=== PATIENT | male | born 1950 | race African-American/Black ===

== ENCOUNTER 2018-06-25 11:14 | Inpatient (IN) | payer MEDICARE ==
[~2018-06-25] VITALS: Ht 175.3 cm; Wt 131.5 kg
[2018-06-25] VITALS (16 sets, daily range): BP systolic 119–146; BP diastolic 64–105
[2018-06-25] MEDS ORDERED: LEVETIRACETAM 1000MG/100ML 100 ML IV ONE (11:30)
[2018-06-25] MEDS ORDERED: DEXAMETHASONE 10 MG/ML VIAL IV ONE (11:30)
[2018-06-25 11:31] LABS: BASOPHILS % 0.6 % (0.0-2.0); EOSINOPHILS % 9.8 % (0.0-5.0); LYMPHOCYTES % 28.3 % (20.0-50.0); MEAN CORPUSCULAR HEMOGLOBIN 26.5 pg (28.0-32.0); MEAN CORPUSCULAR VOLUME 83.3 fL (80.0-94.0); MEAN PLATELET VOLUME 8.3 fl (7.4-10.4); MONOCYTES % 9.1 % (2.0-8.0); NEUTROPHILS % 52.2 % (40.0-76.0); PLATELET 213 x1000/uL (130-400); RED BLOOD CELL COUNT 5.28 mill/uL (4.7-6.1); RED CELL DISTRIBUTION WIDTH 16.1 % (11.6-14.6)
[2018-06-25 11:35] LABS: CHLORIDE 112 mEq/L (98-107)
[2018-06-25 11:37] LABS: PROTHROMBIN TIME 10.4 sec (9.6-11.0)
[2018-06-25 11:39] LABS: ETHANOL BLOOD < 10 mg/dL
[2018-06-25 11:41] LABS: LDL CHOLESTEROL 101 mg/dL (5-100)
[2018-06-25] MEDS: NICARDIPINE 40MG/200ML PREMIX 200 ML IV PRN ×2 (11:50→16:42)
[2018-06-25] MEDS ORDERED: NICARDIPINE 100 MG in SODIUM CHLORIDE 0.9% 60 ML IV PRN (12:00)
[2018-06-25] MEDS ORDERED: MORPHINE SULFATE 4 MG/ML CPJ (NOT FOR IM USE) IV PRN (12:00)
[2018-06-25] MEDS ORDERED: IPRATROPIUM/ALBUTEROL 0.5-3(2.5)MG/3ML NEB INH PRN (12:30)
[2018-06-25] MEDS ORDERED: ACETAMINOPHEN 650MG SUPP PR PRN (12:30)
[2018-06-25 13:40] LABS: CLARITY URINE CLEAR (CLEAR); COLOR URINE YELLOW (YELLOW); KETONES URINE NEGATIVE (NEGATIVE); LEUKOCYTE ESTERASE URINE NEGATIVE (NEGATIVE); NITRITE URINE NEGATIVE (NEGATIVE); OCCULT BLOOD URINE TRACE (NEGATIVE); PH URINE 7.5 (4.5-8.0); PROTEIN URINE 1+ (NEGATIVE); SPECIFIC GRAVITY URINE 1.012 (1.005-1.030); UROBILINOGEN URINE 0.2 E.U./dL (0.2-1.0)
[2018-06-25 13:57] LABS: *AMPHETAMINES SCREEN URINE NEGATIVE (NEGATIVE); *BARBITURATES SCREEN URINE NEGATIVE (NEGATIVE); *BENZODIAZEPINES SCREEN URINE NEGATIVE (NEGATIVE); *COCAINE SCREEN URINE NEGATIVE (NEGATIVE); METHADONE URINE SCREEN NEGATIVE (NEGATIVE); OPIATES URINE SCREEN NEGATIVE (NEGATIVE)
[2018-06-25 13:58] LABS: CANNABINOID URINE SCREEN NEGATIVE (NEGATIVE); PHENCYCLIDINE URINE SCREEN NEGATIVE (NEGATIVE)
[2018-06-25] MEDS: DEXT 5%/LACTATED RINGERS 1,000 ML IV SCH ×2 (16:58→22:36)
[2018-06-25] MEDS ORDERED: LEVETIRACETAM 500MG PREMIX 100 ML IV SCH (21:00)
[2018-06-25] MEDS: DEXAMETHASONE 4MG/ML 1ML VIAL IV SCH (22:34)
[2018-06-25] MEDS: NICARDIPINE 100 MG in SODIUM CHLORIDE 0.9% 60 ML IV PRN (22:35)
[2018-06-26] VITALS (95 sets, daily range): BP systolic 109–176; BP diastolic 53–121
[2018-06-26] MEDS: DEXAMETHASONE 4MG/ML 1ML VIAL IV SCH ×4 (00:03→17:56)
[2018-06-26] MEDS: LEVETIRACETAM 500 MG in SODIUM CHLORIDE 0.9% 100 ML IV SCH ×2 (08:32→20:57)
[2018-06-26] MEDS: PANTOPRAZOLE SODIUM 40 MG/VIAL IV SCH (08:33)
[2018-06-26] MEDS: NICARDIPINE 100 MG in SODIUM CHLORIDE 0.9% 60 ML IV PRN ×2 (09:23→18:07)
[2018-06-26] MEDS: DEXT 5%/LACTATED RINGERS 1,000 ML IV SCH (14:47)
[2018-06-26] MEDS ORDERED: CLONIDINE 0.1MG TABLET PO PRN (15:15)
[2018-06-26] MEDS: LISINOPRIL 20MG TABLET PO SCH (20:57)
[2018-06-26] MEDS: ATORVASTATIN CALCIUM 10MG TABLET PO SCH (20:57)
[2018-06-26] MEDS: METOPROLOL TARTRATE 25MG TABLET PO SCH (20:58)
[2018-06-27] VITALS (77 sets, daily range): BP systolic 113–176; BP diastolic 54–117
[2018-06-27] MEDS: DEXAMETHASONE 4MG/ML 1ML VIAL IV SCH ×4 (00:29→18:00)
[2018-06-27] MEDS: NICARDIPINE 100 MG in SODIUM CHLORIDE 0.9% 60 ML IV PRN ×4 (00:51→20:33)
[2018-06-27] MEDS: METOPROLOL TARTRATE 25MG TABLET PO SCH ×2 (08:55→20:33)
[2018-06-27] MEDS: LEVETIRACETAM 500 MG in SODIUM CHLORIDE 0.9% 100 ML IV SCH ×2 (08:55→20:33)
[2018-06-27] MEDS: PANTOPRAZOLE SODIUM 40 MG/VIAL IV SCH (08:55)
[2018-06-27] MEDS: AMLODIPINE 10MG TABLET PO SCH (08:56)
[2018-06-27] MEDS: LISINOPRIL 20MG TABLET PO SCH ×2 (08:56→20:33)
[2018-06-27] MEDS: DEXT 5%/LACTATED RINGERS 1,000 ML IV SCH (09:07)
[2018-06-27] MEDS: HYDRALAZINE HCL 50MG TABLET PO SCH ×2 (13:59→21:59)
[2018-06-27] MEDS: ATORVASTATIN CALCIUM 10MG TABLET PO SCH (20:33)
[2018-06-28] VITALS (64 sets, daily range): BP systolic 100–160; BP diastolic 47–115
[2018-06-28] MEDS: DEXAMETHASONE 4MG/ML 1ML VIAL IV SCH ×5 (00:29→23:30)
[2018-06-28] MEDS: DEXT 5%/LACTATED RINGERS 1,000 ML IV SCH ×2 (02:55→17:43)
[2018-06-28] MEDS: NICARDIPINE 100 MG in SODIUM CHLORIDE 0.9% 60 ML IV PRN (03:57)
[2018-06-28] MEDS: HYDRALAZINE HCL 50MG TABLET PO SCH ×3 (06:30→23:30)
[2018-06-28] MEDS: PANTOPRAZOLE SODIUM 40 MG/VIAL IV SCH (08:42)
[2018-06-28] MEDS: METOPROLOL TARTRATE 25MG TABLET PO SCH ×2 (08:42→21:26)
[2018-06-28] MEDS: LISINOPRIL 20MG TABLET PO SCH ×2 (08:43→21:26)
[2018-06-28] MEDS: AMLODIPINE 10MG TABLET PO SCH (08:43)
[2018-06-28] MEDS: LEVETIRACETAM 500 MG in SODIUM CHLORIDE 0.9% 100 ML IV SCH (08:45)
[2018-06-28] MEDS: ATORVASTATIN CALCIUM 10MG TABLET PO SCH (21:25)
[2018-06-29] VITALS: BP 126/62
[2018-06-29] MEDS: LEVETIRACETAM 500 MG in SODIUM CHLORIDE 0.9% 100 ML IV SCH ×2 (00:27→08:55)
[2018-06-29 04:00] VITALS: BP 122/71
[2018-06-29] MEDS: HYDRALAZINE HCL 50MG TABLET PO SCH ×2 (05:54→13:54)
[2018-06-29] MEDS: DEXAMETHASONE 4MG/ML 1ML VIAL IV SCH (05:54)
[2018-06-29 08:00] VITALS: BP 129/72
[2018-06-29] MEDS: METOPROLOL TARTRATE 25MG TABLET PO SCH (08:55)
[2018-06-29] MEDS: PANTOPRAZOLE SODIUM 40 MG/VIAL IV SCH (08:55)
[2018-06-29] MEDS: AMLODIPINE 10MG TABLET PO SCH (08:56)
[2018-06-29] MEDS: LISINOPRIL 20MG TABLET PO SCH (08:58)
[2018-06-29 11:20] VITALS: BP 129/72
[2018-06-29] MEDS ORDERED: IOHEXOL-350 100 ML BOTTLE ONE (15:52)
[2018-06-29 16:00] VITALS: BP 107/65
[2018-06-30] MEDS ORDERED: DEXAMETHASONE 4MG TABLET PO SCH (09:00)
== END 2018-06-29 17:05 | DRG 65 ==
LOC: ER 11:14 → MICUSO 11:53 → EDBEDREQ 11:54 → EDBEDREQSVC 11:54 → ENRESERV 18:58 → SUPCPDRO 19:07 → 6EST 06-28 17:15
PROVIDERS: ADMIT Internal Medicine; ATTEND Internal Medicine
DX: I61.0 Nontraumatic intracerebral hemorrhage in hemisphere, subcortical (principal); G81.91 Hemiplegia, unspecified affecting right dominant side; I10 Essential (primary) hypertension; E78.00 Pure hypercholesterolemia, unspecified; R47.1 Dysarthria and anarthria; E78.5 Hyperlipidemia, unspecified; R13.10 Dysphagia, unspecified; Z79.899 Other long term (current) drug therapy
CPT/HCPCS: 36415; 70496; 71045; 80305; 80320; 82465; 83721; 84484; 92610; 93005; 93970; 96374; 97112; 97116; 97163; 97166; 99285; C9113; J1100; J1953; J3490; J7050; Q9967; G0480

== ENCOUNTER 2018-06-29 17:10 | Inpatient (IN) | payer MEDICARE ==
[~2018-06-29] VITALS: Ht 176.5 cm; Wt 99.8 kg
[2018-06-29 17:59] VITALS: BP 133/62
[2018-06-29 18:11] VITALS: BP 133/62
[2018-06-29] MEDS ORDERED: IPRATROPIUM/ALBUTEROL 0.5-3(2.5)MG/3ML NEB HHN PRN (18:30)
[2018-06-29] MEDS ORDERED: MORPHINE SULFATE 4 MG/ML CPJ (NOT FOR IM USE) IV PRN (18:30)
[2018-06-29] MEDS ORDERED: LEVETIRACETAM 500 MG in SODIUM CHLORIDE 0.9% 100 ML IV SCH (18:30)
[2018-06-29] MEDS ORDERED: CLONIDINE 0.1MG TABLET PO PRN (18:30)
[2018-06-29] MEDS ORDERED: ACETAMINOPHEN 650MG SUPP PR PRN (18:30)
[2018-06-29] MEDS ORDERED: DEXT 5%/LACTATED RINGERS 1,000 ML IV SCH (18:30)
[2018-06-29 21:15] VITALS: BP 134/73
[2018-06-29] MEDS: ATORVASTATIN CALCIUM 10MG TABLET PO SCH (21:41)
[2018-06-29] MEDS: LISINOPRIL 20MG TABLET PO SCH (21:42)
[2018-06-29] MEDS: HYDRALAZINE HCL 50MG TABLET PO SCH (21:43)
[2018-06-29] MEDS: LEVETIRACETAM 500 MG in SODIUM CHLORIDE 0.9% 100 ML IV SCH (21:46)
[2018-06-29] MEDS: DEXT 5%/LACTATED RINGERS 1,000 ML IV SCH (21:49)
[2018-06-29] MEDS: METOPROLOL TARTRATE 25MG TABLET PO SCH (22:21)
[2018-06-30] MEDS: HYDRALAZINE HCL 50MG TABLET PO SCH ×3 (06:11→22:54)
[2018-06-30] MEDS: PANTOPRAZOLE 40MG DR TABLET PO SCH (06:11)
[2018-06-30 07:44] LABS: BASOPHILS % 0.2 % (0.0-2.0); HEMATOCRIT. 42.9 % (42.0-52.0); HEMOGLOBIN. 13.9 g/dL (14.0-18.0); LYMPHOCYTES % 7.5 % (20.0-50.0); MEAN CORPUSCULAR HEMOGLOBIN 26.7 pg (28.0-32.0); MEAN PLATELET VOLUME 9.5 fl (7.4-10.4); MONOCYTES % 6.4 % (2.0-8.0); NEUTROPHILS % 85.9 % (40.0-76.0); PLATELET 199 x1000/uL (130-400); RED BLOOD CELL COUNT 5.23 mill/uL (4.7-6.1); RED CELL DISTRIBUTION WIDTH 15.6 % (11.6-14.6)
[2018-06-30 07:45] VITALS: BP 132/93
[2018-06-30 08:17] LABS: CHLORIDE 110 mEq/L (98-107)
[2018-06-30] MEDS: LISINOPRIL 20MG TABLET PO SCH ×2 (08:28→21:47)
[2018-06-30] MEDS: AMLODIPINE 10MG TABLET PO SCH (08:28)
[2018-06-30] MEDS: METOPROLOL TARTRATE 25MG TABLET PO SCH ×2 (08:28→21:46)
[2018-06-30] MEDS ORDERED: BISACODYL 10MG SUPP PR PRN (08:30)
[2018-06-30] MEDS ORDERED: BISACODYL 10MG SUPP PR NR (08:45)
[2018-06-30] MEDS ORDERED: DEXAMETHASONE 4MG TABLET PO SCH (09:00)
[2018-06-30] MEDS ORDERED: PANTOPRAZOLE SODIUM 40 MG/VIAL IV SCH (09:00)
[2018-06-30] MEDS: LACTULOSE 20G/30ML UDC PO SCH ×2 (09:38→13:00)
[2018-06-30] MEDS: DOCUSATE SODIUM 100MG CAPSULE PO SCH ×2 (09:38→17:00)
[2018-06-30] MEDS: LEVETIRACETAM 500 MG in SODIUM CHLORIDE 0.9% 100 ML IV SCH ×2 (10:03→21:48)
[2018-06-30] MEDS: CHLORPROMAZINE HCL 10 MG TABLET PO SCH ×2 (14:33→21:53)
[2018-06-30] MEDS: DEXT 5%/LACTATED RINGERS 1,000 ML IV SCH (14:40)
[2018-06-30 20:00] VITALS: BP 146/83
[2018-06-30] MEDS: ATORVASTATIN CALCIUM 10MG TABLET PO SCH (21:45)
[2018-06-30] MEDS: POLYETHYLENE GLYCOL 3350 (17GM) 1 DOSE PACK PO SCH (21:48)
[2018-07-01] MEDS: CHLORPROMAZINE HCL 10 MG TABLET PO SCH ×3 (06:01→21:57)
[2018-07-01] MEDS: PANTOPRAZOLE 40MG DR TABLET PO SCH (06:02)
[2018-07-01] MEDS: HYDRALAZINE HCL 50MG TABLET PO SCH ×3 (06:02→21:56)
[2018-07-01 07:55] VITALS: BP 156/98
[2018-07-01] MEDS: LISINOPRIL 20MG TABLET PO SCH ×2 (08:09→20:21)
[2018-07-01] MEDS: METOPROLOL TARTRATE 25MG TABLET PO SCH ×2 (08:09→21:00)
[2018-07-01] MEDS: AMLODIPINE 10MG TABLET PO SCH (08:09)
[2018-07-01] MEDS: DEXAMETHASONE 2MG TABLET PO SCH (08:09)
[2018-07-01] MEDS: DOCUSATE SODIUM 100MG CAPSULE PO SCH ×2 (08:12→14:33)
[2018-07-01] MEDS: LEVETIRACETAM 500 MG in SODIUM CHLORIDE 0.9% 100 ML IV SCH ×2 (09:12→21:44)
[2018-07-01 10:54] LABS: BASOPHILS % 0.2 % (0.0-2.0); HEMATOCRIT. 44.7 % (42.0-52.0); HEMOGLOBIN. 14.2 g/dL (14.0-18.0); LYMPHOCYTES % 13.6 % (20.0-50.0); MEAN CORPUSCULAR HEMOGLOBIN 26.2 pg (28.0-32.0); MEAN CORPUSCULAR VOLUME 82.5 fL (80.0-94.0); MEAN PLATELET VOLUME 8.7 fl (7.4-10.4); MONOCYTES % 12.5 % (2.0-8.0); NEUTROPHILS % 72.7 % (40.0-76.0); PLATELET 180 x1000/uL (130-400); RED BLOOD CELL COUNT 5.42 mill/uL (4.7-6.1); RED CELL DISTRIBUTION WIDTH 15.8 % (11.6-14.6)
[2018-07-01 13:10] VITALS: BP 141/87
[2018-07-01 20:00] VITALS: BP 118/74
[2018-07-01] MEDS: ATORVASTATIN CALCIUM 10MG TABLET PO SCH (20:20)
[2018-07-01] MEDS: POLYETHYLENE GLYCOL 3350 (17GM) 1 DOSE PACK PO SCH (20:22)
[2018-07-02] MEDS: CHLORPROMAZINE HCL 10 MG TABLET PO SCH ×3 (05:21→21:05)
[2018-07-02] MEDS: HYDRALAZINE HCL 50MG TABLET PO SCH ×3 (05:22→22:00)
[2018-07-02 05:53] LABS: BASOPHILS % 0.2 % (0.0-2.0); EOSINOPHILS % 1.9 % (0.0-5.0); HEMATOCRIT. 44.1 % (42.0-52.0); HEMOGLOBIN. 14.5 g/dL (14.0-18.0); LYMPHOCYTES % 21.9 % (20.0-50.0); MEAN CORPUSCULAR VOLUME 82.2 fL (80.0-94.0); MEAN PLATELET VOLUME 8.6 fl (7.4-10.4); MONOCYTES % 8.6 % (2.0-8.0); NEUTROPHILS % 67.4 % (40.0-76.0); PLATELET 175 x1000/uL (130-400); RED BLOOD CELL COUNT 5.36 mill/uL (4.7-6.1); RED CELL DISTRIBUTION WIDTH 15.7 % (11.6-14.6)
[2018-07-02 07:54] VITALS: BP 116/71
[2018-07-02 08:11] VITALS: BP 116/71
[2018-07-02 08:39] LABS: CHLORIDE 112 mEq/L (98-107)
[2018-07-02 08:48] LABS: PHOSPHORUS 1.9 mg/dL (2.5-4.9)
[2018-07-02 08:55] LABS: TOTAL IRON BINDING CAPACITY 204 ug/dL (250-450)
[2018-07-02] MEDS: DEXAMETHASONE 2MG TABLET PO SCH (09:14)
[2018-07-02] MEDS: DOCUSATE SODIUM 100MG CAPSULE PO SCH ×2 (09:15→16:52)
[2018-07-02] MEDS: FAMOTIDINE 20MG TABLET PO SCH ×2 (09:15→21:05)
[2018-07-02] MEDS: LEVETIRACETAM 500 MG in SODIUM CHLORIDE 0.9% 100 ML IV SCH (09:30)
[2018-07-02] MEDS: LISINOPRIL 20MG TABLET PO SCH ×2 (09:31→21:10)
[2018-07-02] MEDS: METOPROLOL TARTRATE 25MG TABLET PO SCH ×2 (09:31→21:09)
[2018-07-02] MEDS: AMLODIPINE 10MG TABLET PO SCH (09:31)
[2018-07-02 12:26] LABS: FOLIC ACID (FOLATE) SERUM 13.3 ng/mL (>5.38)
[2018-07-02 12:30] LABS: PROSTRATE SPECIFIC AG TOTAL 0.55 ng/mL (0.0-4.0)
[2018-07-02] MEDS ORDERED: POTASSIUM-SODIUM PHOSPHATE POWDER PACKET PO NR (15:00)
[2018-07-02] MEDS: CYANOCOBALAMIN 1000MCG/ML VIAL IM SCH (15:29)
[2018-07-02 20:00] VITALS: BP 144/57
[2018-07-02] MEDS: POLYETHYLENE GLYCOL 3350 (17GM) 1 DOSE PACK PO SCH (21:00)
[2018-07-02] MEDS: LEVETIRACETAM 500MG TABLET PO SCH (21:05)
[2018-07-02] MEDS: ATORVASTATIN CALCIUM 10MG TABLET PO SCH (21:05)
[2018-07-03] VITALS: BP 108/75
[2018-07-03 04:00] VITALS: BP 113/75
[2018-07-03] MEDS: HYDRALAZINE HCL 50MG TABLET PO SCH ×3 (05:55→22:00)
[2018-07-03] MEDS: CHLORPROMAZINE HCL 10 MG TABLET PO SCH ×3 (05:56→21:53)
[2018-07-03 06:03] LABS: BASOPHILS % 0.2 % (0.0-2.0); EOSINOPHILS % 2.5 % (0.0-5.0); HEMATOCRIT. 42.9 % (42.0-52.0); HEMOGLOBIN. 14.1 g/dL (14.0-18.0); LYMPHOCYTES % 18.1 % (20.0-50.0); MEAN CORPUSCULAR HEMOGLOBIN 26.9 pg (28.0-32.0); MEAN CORPUSCULAR VOLUME 82.1 fL (80.0-94.0); MEAN PLATELET VOLUME 8.7 fl (7.4-10.4); MONOCYTES % 9.3 % (2.0-8.0); NEUTROPHILS % 69.9 % (40.0-76.0); PLATELET 169 x1000/uL (130-400); RED BLOOD CELL COUNT 5.23 mill/uL (4.7-6.1); RED CELL DISTRIBUTION WIDTH 15.7 % (11.6-14.6)
[2018-07-03 07:36] VITALS: BP 148/96
[2018-07-03 07:41] LABS: CHLORIDE 112 mEq/L (98-107)
[2018-07-03 07:53] LABS: PHOSPHORUS 2.1 mg/dL (2.5-4.9)
[2018-07-03] MEDS: LEVETIRACETAM 500MG TABLET PO SCH ×2 (09:27→21:53)
[2018-07-03] MEDS: FAMOTIDINE 20MG TABLET PO SCH ×2 (09:28→21:53)
[2018-07-03] MEDS: LISINOPRIL 20MG TABLET PO SCH ×2 (09:28→21:00)
[2018-07-03] MEDS: DOCUSATE SODIUM 100MG CAPSULE PO SCH ×2 (09:28→17:53)
[2018-07-03] MEDS: AMLODIPINE 10MG TABLET PO SCH (09:28)
[2018-07-03] MEDS: METOPROLOL TARTRATE 25MG TABLET PO SCH ×2 (09:28→21:53)
[2018-07-03] MEDS: CYANOCOBALAMIN 1000MCG/ML VIAL IM SCH (10:39)
[2018-07-03] MEDS: POTASSIUM-SODIUM PHOSPHATE POWDER PACKET PO SCH (17:54)
[2018-07-03 20:11] VITALS: BP 124/67
[2018-07-03] MEDS: POLYETHYLENE GLYCOL 3350 (17GM) 1 DOSE PACK PO SCH (21:00)
[2018-07-03] MEDS: ATORVASTATIN CALCIUM 10MG TABLET PO SCH (21:53)
[2018-07-04 05:47] VITALS: BP 137/84
[2018-07-04] MEDS: CHLORPROMAZINE HCL 10 MG TABLET PO SCH ×3 (05:57→21:48)
[2018-07-04] MEDS: HYDRALAZINE HCL 50MG TABLET PO SCH ×3 (05:57→23:34)
[2018-07-04 05:58] LABS: BASOPHILS % 0.1 % (0.0-2.0); EOSINOPHILS % 3.8 % (0.0-5.0); HEMATOCRIT. 42.7 % (42.0-52.0); HEMOGLOBIN. 13.9 g/dL (14.0-18.0); LYMPHOCYTES % 20.2 % (20.0-50.0); MEAN CORPUSCULAR HEMOGLOBIN 26.8 pg (28.0-32.0); MEAN CORPUSCULAR VOLUME 82.6 fL (80.0-94.0); MEAN PLATELET VOLUME 8.8 fl (7.4-10.4); MONOCYTES % 12.1 % (2.0-8.0); NEUTROPHILS % 63.8 % (40.0-76.0); PLATELET 156 x1000/uL (130-400); RED BLOOD CELL COUNT 5.17 mill/uL (4.7-6.1); RED CELL DISTRIBUTION WIDTH 16.1 % (11.6-14.6)
[2018-07-04 06:25] LABS: CHLORIDE 110 mEq/L (98-107)
[2018-07-04 06:33] LABS: PHOSPHORUS 2.3 mg/dL (2.5-4.9)
[2018-07-04 08:00] VITALS: BP 118/72
[2018-07-04] MEDS: CYANOCOBALAMIN 1000MCG/ML VIAL IM SCH (08:59)
[2018-07-04] MEDS: POTASSIUM-SODIUM PHOSPHATE POWDER PACKET PO SCH ×2 (08:59→16:39)
[2018-07-04] MEDS: LEVETIRACETAM 500MG TABLET PO SCH ×2 (08:59→21:48)
[2018-07-04] MEDS: DOCUSATE SODIUM 100MG CAPSULE PO SCH ×2 (08:59→16:39)
[2018-07-04] MEDS: FAMOTIDINE 20MG TABLET PO SCH ×2 (08:59→21:48)
[2018-07-04] MEDS: LISINOPRIL 20MG TABLET PO SCH ×2 (09:00→21:00)
[2018-07-04] MEDS: AMLODIPINE 10MG TABLET PO SCH (09:00)
[2018-07-04] MEDS: METOPROLOL TARTRATE 25MG TABLET PO SCH ×2 (09:01→21:49)
[2018-07-04 09:05] VITALS: BP 128/76
[2018-07-04 14:40] LABS: CLARITY URINE CLEAR (CLEAR); COLOR URINE YELLOW (YELLOW); KETONES URINE NEGATIVE (NEGATIVE); LEUKOCYTE ESTERASE URINE NEGATIVE (NEGATIVE); NITRITE URINE NEGATIVE (NEGATIVE); OCCULT BLOOD URINE NEGATIVE (NEGATIVE); PROTEIN URINE NEGATIVE (NEGATIVE); SPECIFIC GRAVITY URINE 1.019 (1.005-1.030)
[2018-07-04 20:00] VITALS: BP 136/72
[2018-07-04] MEDS: ATORVASTATIN CALCIUM 10MG TABLET PO SCH (21:48)
[2018-07-04] MEDS: POLYETHYLENE GLYCOL 3350 (17GM) 1 DOSE PACK PO SCH (21:48)
[2018-07-05] MEDS: HYDRALAZINE HCL 50MG TABLET PO SCH ×3 (06:28→21:07)
[2018-07-05] MEDS: CHLORPROMAZINE HCL 10 MG TABLET PO SCH ×3 (06:28→21:06)
[2018-07-05 07:49] VITALS: BP 113/61
[2018-07-05] MEDS: FAMOTIDINE 20MG TABLET PO SCH ×2 (08:37→21:06)
[2018-07-05] MEDS: LEVETIRACETAM 500MG TABLET PO SCH ×2 (08:37→21:06)
[2018-07-05] MEDS: CYANOCOBALAMIN 1000MCG/ML VIAL IM SCH (08:37)
[2018-07-05] MEDS: METOPROLOL TARTRATE 25MG TABLET PO SCH ×2 (08:37→21:06)
[2018-07-05] MEDS: POTASSIUM-SODIUM PHOSPHATE POWDER PACKET PO SCH ×2 (08:37→17:01)
[2018-07-05] MEDS: DOCUSATE SODIUM 100MG CAPSULE PO SCH ×2 (08:37→17:01)
[2018-07-05] MEDS: AMLODIPINE 10MG TABLET PO SCH (09:00)
[2018-07-05] MEDS: LISINOPRIL 20MG TABLET PO SCH ×2 (09:00→21:06)
[2018-07-05 10:12] VITALS: BP 120/60
[2018-07-05 20:00] VITALS: BP 128/85
[2018-07-05] MEDS: POLYETHYLENE GLYCOL 3350 (17GM) 1 DOSE PACK PO SCH (21:06)
[2018-07-05] MEDS: ATORVASTATIN CALCIUM 10MG TABLET PO SCH (21:06)
[2018-07-06] MEDS: CHLORPROMAZINE HCL 10 MG TABLET PO SCH ×3 (05:12→22:13)
[2018-07-06] MEDS: HYDRALAZINE HCL 50MG TABLET PO SCH ×3 (05:12→22:00)
[2018-07-06 06:58] LABS: BASOPHILS % 0.3 % (0.0-2.0); EOSINOPHILS % 2.7 % (0.0-5.0); HEMATOCRIT. 41.8 % (42.0-52.0); HEMOGLOBIN. 13.5 g/dL (14.0-18.0); LYMPHOCYTES % 14.9 % (20.0-50.0); MEAN CORPUSCULAR HEMOGLOBIN 26.7 pg (28.0-32.0); MEAN CORPUSCULAR VOLUME 82.8 fL (80.0-94.0); MEAN PLATELET VOLUME 8.8 fl (7.4-10.4); MONOCYTES % 14.3 % (2.0-8.0); NEUTROPHILS % 67.8 % (40.0-76.0); PLATELET 149 x1000/uL (130-400); RED BLOOD CELL COUNT 5.05 mill/uL (4.7-6.1); RED CELL DISTRIBUTION WIDTH 16.2 % (11.6-14.6)
[2018-07-06 08:00] VITALS: BP 120/74
[2018-07-06 08:28] LABS: CHLORIDE 112 mEq/L (98-107)
[2018-07-06] MEDS: LISINOPRIL 20MG TABLET PO SCH ×2 (09:00→22:15)
[2018-07-06] MEDS: AMLODIPINE 10MG TABLET PO SCH (09:00)
[2018-07-06] MEDS: CYANOCOBALAMIN 1000MCG/ML VIAL IM SCH (09:18)
[2018-07-06] MEDS: DOCUSATE SODIUM 100MG CAPSULE PO SCH ×2 (09:18→17:06)
[2018-07-06] MEDS: LEVETIRACETAM 500MG TABLET PO SCH ×2 (09:18→21:12)
[2018-07-06] MEDS: POTASSIUM-SODIUM PHOSPHATE POWDER PACKET PO SCH ×2 (09:19→17:07)
[2018-07-06] MEDS: METOPROLOL TARTRATE 25MG TABLET PO SCH ×2 (09:19→21:14)
[2018-07-06] MEDS: FAMOTIDINE 20MG TABLET PO SCH ×2 (09:19→21:13)
[2018-07-06 20:00] VITALS: BP 127/56
[2018-07-06] MEDS: POLYETHYLENE GLYCOL 3350 (17GM) 1 DOSE PACK PO SCH (21:00)
[2018-07-06] MEDS: ATORVASTATIN CALCIUM 10MG TABLET PO SCH (21:12)
[2018-07-06 21:15] VITALS: BP 127/56
[2018-07-07] MEDS: CHLORPROMAZINE HCL 10 MG TABLET PO SCH ×3 (05:50→20:58)
[2018-07-07] MEDS: HYDRALAZINE HCL 50MG TABLET PO SCH ×3 (05:50→20:59)
[2018-07-07 07:49] VITALS: BP 127/77
[2018-07-07 08:17] LABS: 25-HYDROXY VITAMIN D3 3.6 ng/mL (.)
[2018-07-07] MEDS: LISINOPRIL 20MG TABLET PO SCH ×2 (08:46→20:58)
[2018-07-07] MEDS: AMLODIPINE 10MG TABLET PO SCH (08:46)
[2018-07-07] MEDS: METOPROLOL TARTRATE 25MG TABLET PO SCH ×2 (08:46→22:07)
[2018-07-07] MEDS: LEVETIRACETAM 500MG TABLET PO SCH ×2 (08:46→20:57)
[2018-07-07] MEDS: DOCUSATE SODIUM 100MG CAPSULE PO SCH ×2 (08:46→16:18)
[2018-07-07] MEDS: FAMOTIDINE 20MG TABLET PO SCH ×2 (08:47→20:58)
[2018-07-07] MEDS: POTASSIUM-SODIUM PHOSPHATE POWDER PACKET PO SCH ×2 (08:47→16:18)
[2018-07-07] MEDS: ERGOCALCIFEROL 50000UNITS CAPSULE PO SCH (11:37)
[2018-07-07 20:00] VITALS: BP 141/78
[2018-07-07] MEDS: ATORVASTATIN CALCIUM 10MG TABLET PO SCH (20:58)
[2018-07-07] MEDS: POLYETHYLENE GLYCOL 3350 (17GM) 1 DOSE PACK PO SCH (21:00)
[2018-07-08] MEDS: CHLORPROMAZINE HCL 10 MG TABLET PO SCH ×3 (05:52→22:06)
[2018-07-08] MEDS: HYDRALAZINE HCL 50MG TABLET PO SCH ×3 (05:54→22:06)
[2018-07-08 06:00] VITALS: BP 143/87
[2018-07-08 06:12] LABS: CHLORIDE 110 mEq/L (98-107)
[2018-07-08 06:19] LABS: BASOPHILS % 0.2 % (0.0-2.0); EOSINOPHILS % 4.3 % (0.0-5.0); HEMATOCRIT. 40.8 % (42.0-52.0); LYMPHOCYTES % 21.2 % (20.0-50.0); MEAN CORPUSCULAR HEMOGLOBIN 26.3 pg (28.0-32.0); MEAN CORPUSCULAR VOLUME 82.8 fL (80.0-94.0); MEAN PLATELET VOLUME 8.3 fl (7.4-10.4); NEUTROPHILS % 65.3 % (40.0-76.0); PLATELET 183 x1000/uL (130-400); RED BLOOD CELL COUNT 4.93 mill/uL (4.7-6.1); RED CELL DISTRIBUTION WIDTH 16.3 % (11.6-14.6)
[2018-07-08 06:21] LABS: PHOSPHORUS 2.3 mg/dL (2.5-4.9)
[2018-07-08 08:17] VITALS: BP 116/73
[2018-07-08] MEDS: DOCUSATE SODIUM 100MG CAPSULE PO SCH ×2 (08:26→16:47)
[2018-07-08] MEDS: FAMOTIDINE 20MG TABLET PO SCH ×2 (08:26→20:29)
[2018-07-08] MEDS: METOPROLOL TARTRATE 25MG TABLET PO SCH ×2 (08:26→20:30)
[2018-07-08] MEDS: LEVETIRACETAM 500MG TABLET PO SCH ×2 (08:26→20:29)
[2018-07-08] MEDS: LISINOPRIL 20MG TABLET PO SCH ×2 (08:26→20:31)
[2018-07-08 10:00] VITALS: BP 114/75
[2018-07-08] MEDS: AMLODIPINE 10MG TABLET PO SCH (10:21)
[2018-07-08 14:10] VITALS: BP 102/62
[2018-07-08 20:00] VITALS: BP 131/85
[2018-07-08] MEDS: ATORVASTATIN CALCIUM 10MG TABLET PO SCH (20:29)
[2018-07-08] MEDS: POLYETHYLENE GLYCOL 3350 (17GM) 1 DOSE PACK PO SCH (20:31)
[2018-07-09] MEDS: CHLORPROMAZINE HCL 10 MG TABLET PO SCH ×3 (06:07→21:54)
[2018-07-09] MEDS: HYDRALAZINE HCL 50MG TABLET PO SCH ×3 (06:08→21:54)
[2018-07-09 06:12] LABS: BASOPHILS % 0.3 % (0.0-2.0); EOSINOPHILS % 4.7 % (0.0-5.0); HEMATOCRIT. 40.3 % (42.0-52.0); HEMOGLOBIN. 13.2 g/dL (14.0-18.0); LYMPHOCYTES % 20.8 % (20.0-50.0); MEAN CORPUSCULAR VOLUME 82.6 fL (80.0-94.0); MEAN PLATELET VOLUME 8.1 fl (7.4-10.4); MONOCYTES % 8.5 % (2.0-8.0); NEUTROPHILS % 65.7 % (40.0-76.0); PLATELET 169 x1000/uL (130-400); RED BLOOD CELL COUNT 4.88 mill/uL (4.7-6.1); RED CELL DISTRIBUTION WIDTH 15.7 % (11.6-14.6)
[2018-07-09 06:32] LABS: CHLORIDE 112 mEq/L (98-107)
[2018-07-09 06:40] LABS: PHOSPHORUS 2.6 mg/dL (2.5-4.9)
[2018-07-09 07:55] VITALS: BP 124/75
[2018-07-09] MEDS: LISINOPRIL 20MG TABLET PO SCH ×2 (08:16→21:10)
[2018-07-09] MEDS: FAMOTIDINE 20MG TABLET PO SCH ×2 (08:16→21:10)
[2018-07-09] MEDS: AMLODIPINE 10MG TABLET PO SCH (08:16)
[2018-07-09] MEDS: METOPROLOL TARTRATE 25MG TABLET PO SCH ×2 (08:16→21:11)
[2018-07-09] MEDS: DOCUSATE SODIUM 100MG CAPSULE PO SCH ×2 (08:16→16:31)
[2018-07-09] MEDS: LEVETIRACETAM 500MG TABLET PO SCH ×2 (08:17→21:10)
[2018-07-09 20:00] VITALS: BP 119/65
[2018-07-09] MEDS: POLYETHYLENE GLYCOL 3350 (17GM) 1 DOSE PACK PO SCH (21:00)
[2018-07-09] MEDS: ATORVASTATIN CALCIUM 10MG TABLET PO SCH (21:09)
[2018-07-10] MEDS: HYDRALAZINE HCL 50MG TABLET PO SCH ×3 (05:52→22:00)
[2018-07-10] MEDS: CHLORPROMAZINE HCL 10 MG TABLET PO SCH ×3 (06:04→22:00)
[2018-07-10] MEDS: AMLODIPINE 10MG TABLET PO SCH (08:06)
[2018-07-10] MEDS: LEVETIRACETAM 500MG TABLET PO SCH ×2 (08:06→21:59)
[2018-07-10] MEDS: FAMOTIDINE 20MG TABLET PO SCH ×2 (08:06→22:00)
[2018-07-10] MEDS: DOCUSATE SODIUM 100MG CAPSULE PO SCH ×2 (08:06→16:28)
[2018-07-10] MEDS: METOPROLOL TARTRATE 25MG TABLET PO SCH ×2 (08:07→22:00)
[2018-07-10] MEDS: LISINOPRIL 20MG TABLET PO SCH ×2 (08:07→23:17)
[2018-07-10 08:15] VITALS: BP 127/80
[2018-07-10 20:00] VITALS: BP 113/74
[2018-07-10] MEDS: POLYETHYLENE GLYCOL 3350 (17GM) 1 DOSE PACK PO SCH (21:00)
[2018-07-10] MEDS: ATORVASTATIN CALCIUM 10MG TABLET PO SCH (22:00)
[2018-07-11] MEDS: CHLORPROMAZINE HCL 10 MG TABLET PO SCH ×3 (05:54→21:39)
[2018-07-11] MEDS: HYDRALAZINE HCL 50MG TABLET PO SCH ×3 (05:55→21:39)
[2018-07-11 08:45] VITALS: BP 114/75
[2018-07-11] MEDS: LISINOPRIL 20MG TABLET PO SCH ×2 (09:00→20:32)
[2018-07-11] MEDS: AMLODIPINE 10MG TABLET PO SCH (09:00)
[2018-07-11] MEDS: METOPROLOL TARTRATE 25MG TABLET PO SCH ×2 (09:00→20:32)
[2018-07-11] MEDS: DOCUSATE SODIUM 100MG CAPSULE PO SCH ×2 (09:07→18:04)
[2018-07-11] MEDS: LEVETIRACETAM 500MG TABLET PO SCH ×2 (09:07→20:32)
[2018-07-11] MEDS: FAMOTIDINE 20MG TABLET PO SCH ×2 (09:07→20:32)
[2018-07-11 20:00] VITALS: BP 119/77
[2018-07-11] MEDS: ATORVASTATIN CALCIUM 10MG TABLET PO SCH (20:32)
[2018-07-11] MEDS: POLYETHYLENE GLYCOL 3350 (17GM) 1 DOSE PACK PO SCH (20:32)
[2018-07-12] MEDS: HYDRALAZINE HCL 50MG TABLET PO SCH ×3 (05:29→22:00)
[2018-07-12] MEDS: CHLORPROMAZINE HCL 10 MG TABLET PO SCH ×3 (05:29→21:41)
[2018-07-12 06:49] LABS: BASOPHILS % 0.4 % (0.0-2.0); EOSINOPHILS % 5.3 % (0.0-5.0); HEMOGLOBIN. 13.7 g/dL (14.0-18.0); LYMPHOCYTES % 24.1 % (20.0-50.0); MEAN CORPUSCULAR HEMOGLOBIN 26.8 pg (28.0-32.0); MEAN CORPUSCULAR VOLUME 82.6 fL (80.0-94.0); MEAN PLATELET VOLUME 7.9 fl (7.4-10.4); MONOCYTES % 8.1 % (2.0-8.0); NEUTROPHILS % 62.1 % (40.0-76.0); PLATELET 192 x1000/uL (130-400); RED BLOOD CELL COUNT 5.09 mill/uL (4.7-6.1); RED CELL DISTRIBUTION WIDTH 15.7 % (11.6-14.6)
[2018-07-12 07:43] LABS: CHLORIDE 110 mEq/L (98-107)
[2018-07-12 07:51] LABS: PHOSPHORUS 2.6 mg/dL (2.5-4.9)
[2018-07-12 08:04] VITALS: BP 111/65
[2018-07-12] MEDS: METOPROLOL TARTRATE 25MG TABLET PO SCH ×2 (08:36→21:41)
[2018-07-12] MEDS: FAMOTIDINE 20MG TABLET PO SCH ×2 (08:36→21:41)
[2018-07-12] MEDS: LEVETIRACETAM 500MG TABLET PO SCH ×2 (08:37→21:41)
[2018-07-12] MEDS: DOCUSATE SODIUM 100MG CAPSULE PO SCH ×2 (08:37→16:35)
[2018-07-12 10:40] VITALS: BP 123/76
[2018-07-12] MEDS: AMLODIPINE 10MG TABLET PO SCH (10:45)
[2018-07-12] MEDS: LISINOPRIL 20MG TABLET PO SCH ×2 (10:45→21:41)
[2018-07-12 13:30] VITALS: BP 126/79
[2018-07-12 20:00] VITALS: BP 121/75
[2018-07-12] MEDS: POLYETHYLENE GLYCOL 3350 (17GM) 1 DOSE PACK PO SCH (21:00)
[2018-07-12] MEDS: ATORVASTATIN CALCIUM 10MG TABLET PO SCH (21:41)
[2018-07-13] MEDS: HYDRALAZINE HCL 50MG TABLET PO SCH ×3 (05:10→22:00)
[2018-07-13] MEDS: CHLORPROMAZINE HCL 10 MG TABLET PO SCH ×3 (05:10→21:19)
[2018-07-13 08:00] VITALS: BP 111/63
[2018-07-13] MEDS: AMLODIPINE 10MG TABLET PO SCH (09:00)
[2018-07-13] MEDS: METOPROLOL TARTRATE 25MG TABLET PO SCH ×2 (09:00→21:18)
[2018-07-13] MEDS: LISINOPRIL 20MG TABLET PO SCH ×2 (09:00→21:18)
[2018-07-13] MEDS: FAMOTIDINE 20MG TABLET PO SCH ×2 (09:18→21:19)
[2018-07-13] MEDS: LEVETIRACETAM 500MG TABLET PO SCH ×2 (09:18→21:18)
[2018-07-13] MEDS: DOCUSATE SODIUM 100MG CAPSULE PO SCH ×2 (09:18→17:00)
[2018-07-13 20:00] VITALS: BP 127/83
[2018-07-13] MEDS: POLYETHYLENE GLYCOL 3350 (17GM) 1 DOSE PACK PO SCH (21:00)
[2018-07-13] MEDS: ATORVASTATIN CALCIUM 10MG TABLET PO SCH (21:18)
[2018-07-14] MEDS: HYDRALAZINE HCL 50MG TABLET PO SCH (05:01)
[2018-07-14] MEDS: CHLORPROMAZINE HCL 10 MG TABLET PO SCH (05:01)
[2018-07-14 07:02] LABS: BASOPHILS % 0.5 % (0.0-2.0); EOSINOPHILS % 4.5 % (0.0-5.0); HEMOGLOBIN. 13.3 g/dL (14.0-18.0); LYMPHOCYTES % 19.9 % (20.0-50.0); MEAN CORPUSCULAR HEMOGLOBIN 26.8 pg (28.0-32.0); MEAN CORPUSCULAR VOLUME 82.5 fL (80.0-94.0); MEAN PLATELET VOLUME 8.2 fl (7.4-10.4); MONOCYTES % 9.9 % (2.0-8.0); NEUTROPHILS % 65.2 % (40.0-76.0); PLATELET 196 x1000/uL (130-400); RED BLOOD CELL COUNT 4.97 mill/uL (4.7-6.1); RED CELL DISTRIBUTION WIDTH 15.5 % (11.6-14.6)
[2018-07-14 07:19] LABS: CHLORIDE 109 mEq/L (98-107)
[2018-07-14 08:11] VITALS: BP 118/82
[2018-07-14] MEDS: LEVETIRACETAM 500MG TABLET PO SCH (08:51)
[2018-07-14] MEDS: ERGOCALCIFEROL 50000UNITS CAPSULE PO SCH (08:51)
[2018-07-14] MEDS: DOCUSATE SODIUM 100MG CAPSULE PO SCH (08:51)
[2018-07-14] MEDS: FAMOTIDINE 20MG TABLET PO SCH (08:51)
[2018-07-14] MEDS: LISINOPRIL 20MG TABLET PO SCH (08:52)
[2018-07-14] MEDS: AMLODIPINE 10MG TABLET PO SCH (08:52)
[2018-07-14] MEDS: METOPROLOL TARTRATE 25MG TABLET PO SCH (08:52)
[2018-07-14 10:28] VITALS: BP 118/82
== END 2018-07-14 12:22 | disposition home health service (06) | DRG 56 ==
PROVIDERS: ADMIT Physical Medicine & Rehabilitation Spinal Cord Injury Medicine; ATTEND Internal Medicine
PROC: 4A10X4Z Monitoring of Central Nervous Electrical Activity, External Approach (ICD-10-PCS; principal; 2018-06-29)
DX: I69.351 Hemiplegia and hemiparesis following cerebral infarction affecting right dominant side (principal); I61.0 Nontraumatic intracerebral hemorrhage in hemisphere, subcortical; G93.6 Cerebral edema; E44.0 Moderate protein-calorie malnutrition; R47.01 Aphasia; R47.1 Dysarthria and anarthria; R26.2 Difficulty in walking, not elsewhere classified; E78.00 Pure hypercholesterolemia, unspecified; I10 Essential (primary) hypertension; D72.829 Elevated white blood cell count, unspecified; K59.00 Constipation, unspecified; R13.10 Dysphagia, unspecified; R53.81 Other malaise; E83.41 Hypermagnesemia; R79.89 Other specified abnormal findings of blood chemistry; F32.9 Major depressive disorder, single episode, unspecified; F41.9 Anxiety disorder, unspecified; F01.50 Vascular dementia, unspecified severity, without behavioral disturbance, psychotic disturbance, mood disturbance, and anxiety; R06.6 Hiccough; Z79.899 Other long term (current) drug therapy; Z79.51 Long term (current) use of inhaled steroids; Z87.891 Personal history of nicotine dependence; Z68.32 Body mass index [BMI] 32.0-32.9, adult
CPT/HCPCS: 36415; 71046; 80048; 82306; 82607; 82728; 82746; 82962; 83540; 83550; 83735; 84100; 84134; 84153; 84443; 92523; 92610; 93970; 97110; 97112; 97116; 97163; 97166; 97530; 97535; J1953; J3420; J7040; J7050; J7620; J8540; Q0161; G0103